=== PATIENT | female | born 1985 ===

== ENCOUNTER 2023-06-10 03:31 | Emergency (ER) | payer SELFPAY ==
[~2023-06-10] VITALS: Ht 152.4 cm; Wt 78.0 kg
[2023-06-10 03:34] VITALS: TEMP 99.4; O2SAT 99
[2023-06-10] MEDS ORDERED: ACETAMINOPHEN 325MG TABLET PO ONE ×2 (04:00→06:15)
[2023-06-10] MEDS ORDERED: BACL-141 MT (05:58)
[2023-06-10] MEDS ORDERED: ACET-2708 MT (05:58)
[2023-06-10 06:43] VITALS: BP 120/76; PULSE 90; RESP 16
== END 2023-06-10 06:49 | disposition home or self-care (01) ==
LOC: ER 03:31
DX: S93.401A Sprain of unspecified ligament of right ankle, initial encounter (principal); W18.39XA Other fall on same level, initial encounter; Y93.89 Activity, other specified; Y92.89 Other specified places as the place of occurrence of the external cause; Y99.8 Other external cause status
CPT/HCPCS: 72131; 73610; 81025; 99284